=== PATIENT | female | born 1950 | race Caucasian/White ===

== ENCOUNTER 2019-12-17 13:52 | Inpatient (IN) ==
[2019-12-17] MEDS ORDERED: *HR* LORazepam 1 MG TABLET PO PRN (15:58)
[2019-12-17] MEDS ORDERED: 0.9 % Sodium Chloride 250 ML IVC SCH (16:15)
[2019-12-17] MEDS ORDERED: Ipratropium Neb 0.5 MG NEBULIZER IH PRN (17:00)
[2019-12-17] MEDS ORDERED: 0.9 % Sodium Chloride 1,000 ML IVC SCH ×2 (18:00→19:18)
[2019-12-17] MEDS: Mirabegron [Myrbetriq] 50 MG PO SCH (18:01)
[2019-12-17] MEDS: Primidone 50 MG TABLET PO SCH (18:01)
[2019-12-17] MEDS: Budesonide/Formoterol 160/4.5 1 PUFF INH IH SCH (23:00)
[2019-12-17] MEDS: Triamcinolone Acet 0.1% CRM 15 GM TUBE TP SCH (23:09)
[2019-12-17] MEDS: *HR* OxyCODONE Immed Rel 5 MG TABLET PO PRN (23:10)
[2019-12-17] MEDS: Gabapentin 300 MG CAPSULE PO SCH (23:10)
[2019-12-17 23:54] LABS: Hematocrit 23.5 % (35.3-44.9); Hemoglobin 7.5 g/dL (11.5-15.4)
[2019-12-18 06:09] LABS: Basophils % 0.4 %; Eosinophils # 0.6 K/mcL (0.0-0.6); Eosinophils % 6.3 %; Hematocrit 22.9 % (35.3-44.9); Hemoglobin 7.3 g/dL (11.5-15.4); Immature Granulocytes % 0.5 % (0-4); Lymphocytes # 2.5 K/mcL (0.6-4.6); Lymphocytes % 24.8 %; Mean Corpuscular HGB Conc 31.9 g/dL (31.6-35.5); Mean Corpuscular Hemoglobin 29.9 pg (28.0-33.3); Mean Corpuscular Volume 93.9 fL (83.0-100.0); Mean Platelet Volume 11.2 fL (9.4-12.4); Monocytes # 0.6 K/mcL (0.0-1.3); Monocytes % 6.2 %; Neutrophils # 6.3 K/mcL (1.6-8.9); Platelet Count 190 K/mcL (140-400); Red Blood Count 2.44 M/mcL (3.82-4.97); Red Cell Distribution Width 14.6 % (11.5-14.5); Segmented Neutrophils % 61.8 %; White Blood Count 10.2 K/mcL (4.3-11.1)
[2019-12-18 06:24] LABS: Calcium 8.2 mg/dL (8.6-10.3); Potassium 3.6 mEq/L (3.5-5.1)
[2019-12-18 06:36] LABS: Thyroid Stimulating Hormone 1.19 mcIU/mL (0.340-5.600)
[2019-12-18] MEDS: Budesonide/Formoterol 160/4.5 1 PUFF INH IH SCH ×2 (08:15→22:48)
[2019-12-18] MEDS: Tiotropium 18 MCG inhalation IH SCH (08:15)
[2019-12-18] MEDS: Triamcinolone Acet 0.1% CRM 15 GM TUBE TP SCH ×2 (08:30→22:41)
[2019-12-18] MEDS: *HR* OxyCODONE Immed Rel 5 MG TABLET PO PRN ×2 (08:35→19:07)
[2019-12-18] MEDS: BuPROPion XL (24 HR) 150 MG TABLET PO SCH (08:36)
[2019-12-18] MEDS: Gabapentin 300 MG CAPSULE PO SCH ×3 (08:36→22:32)
[2019-12-18] MEDS: Aspirin 81 MG TAB.CHEW PO SCH (08:36)
[2019-12-18] MEDS: Famotidine 20 MG TABLET PO SCH (08:37)
[2019-12-18] MEDS ORDERED: 0.9 % Sodium Chloride 250 ML IVC SCH (10:45)
[2019-12-18 13:50] LABS: Prealbumin 8.8 mg/dL (17.0-34.0)
[2019-12-18 14:14] LABS: Folate 14.1 ng/mL (3.0-16.0)
[2019-12-18] MEDS: Mirabegron [Myrbetriq] 50 MG PO SCH (17:00)
[2019-12-18] MEDS: Iron Sucrose Complex 200 MG in 0.9 % Sodium Chloride 100 ML IVPB SCH (18:21)
[2019-12-18 19:37] LABS: Basophils % 0.4 %; Eosinophils # 0.7 K/mcL (0.0-0.6); Eosinophils % 6.6 %; Hematocrit 27.4 % (35.3-44.9); Hemoglobin 8.8 g/dL (11.5-15.4); Immature Granulocytes % 0.6 % (0-4); Lymphocytes % 26.9 %; Mean Corpuscular HGB Conc 32.1 g/dL (31.6-35.5); Mean Corpuscular Hemoglobin 29.8 pg (28.0-33.3); Mean Corpuscular Volume 92.9 fL (83.0-100.0); Mean Platelet Volume 10.4 fL (9.4-12.4); Monocytes # 0.9 K/mcL (0.0-1.3); Monocytes % 8.1 %; Neutrophils # 6.3 K/mcL (1.6-8.9); Platelet Count 251 K/mcL (140-400); Red Blood Count 2.95 M/mcL (3.82-4.97); Red Cell Distribution Width 14.6 % (11.5-14.5); Segmented Neutrophils % 57.4 %
[2019-12-18 19:47] LABS: Estimated Average Glucose 126 mg/dl
[2019-12-19] MEDS: *HR* OxyCODONE Immed Rel 5 MG TABLET PO PRN ×3 (01:59→18:30)
[2019-12-19 05:42] LABS: Basophils # 0.1 K/mcL (0.0-0.2); Basophils % 0.5 %; Eosinophils # 0.7 K/mcL (0.0-0.6); Eosinophils % 6.8 %; Hematocrit 28.2 % (35.3-44.9); Hemoglobin 9.1 g/dL (11.5-15.4); Immature Granulocytes % 0.5 % (0-4); Lymphocytes % 30.3 %; Mean Corpuscular HGB Conc 32.3 g/dL (31.6-35.5); Mean Corpuscular Hemoglobin 29.8 pg (28.0-33.3); Mean Corpuscular Volume 92.5 fL (83.0-100.0); Mean Platelet Volume 10.6 fL (9.4-12.4); Monocytes # 0.9 K/mcL (0.0-1.3); Monocytes % 8.8 %; Neutrophils # 5.3 K/mcL (1.6-8.9); Platelet Count 256 K/mcL (140-400); Red Blood Count 3.05 M/mcL (3.82-4.97); Red Cell Distribution Width 14.7 % (11.5-14.5); Segmented Neutrophils % 53.1 %
[2019-12-19 06:01] LABS: BUN/Creatinine Ratio 12 (6-26); Blood Urea Nitrogen 12 mg/dL (8-23); Calcium 8.4 mg/dL (8.6-10.3); Carbon Dioxide 25 mEq/L (23-29); Chloride 111 mEq/L (98-107); Glucose 133 mg/dL (70-105); Osmolality,Calculated 296 (280-300); Potassium 3.7 mEq/L (3.5-5.1); Sodium 142 mEq/L (136-145); eGFR For African Americans > 60 (> 60); eGFR For Non-African Americans 52 (> 60)
[2019-12-19] MEDS: Tiotropium 18 MCG inhalation IH SCH (08:00)
[2019-12-19] MEDS: Budesonide/Formoterol 160/4.5 1 PUFF INH IH SCH ×2 (08:02→20:39)
[2019-12-19] MEDS: Famotidine 20 MG TABLET PO SCH (08:57)
[2019-12-19] MEDS: Gabapentin 300 MG CAPSULE PO SCH ×3 (08:57→20:38)
[2019-12-19] MEDS: Aspirin 81 MG TAB.CHEW PO SCH (08:57)
[2019-12-19] MEDS: Triamcinolone Acet 0.1% CRM 15 GM TUBE TP SCH (08:57)
[2019-12-19] MEDS: Iron Sucrose Complex 200 MG in 0.9 % Sodium Chloride 100 ML IVPB SCH (09:04)
[2019-12-19] MEDS: BuPROPion XL (24 HR) 150 MG TABLET PO SCH (10:45)
[2019-12-19 14:21] LABS: Bilirubin,Urine Negative (Negative); Blood,Urine Moderate (Negative); Clarity,Urine Cloudy (Clear); Color,Urine Yellow (Yellow); Glucose,Urine (UA) Normal (Normal); Ketones,Urine Negative (Negative); Leukocyte Esterase,Urine Large (Negative); Nitrite,Urine Negative (Negative); Protein,Urine 100 mg/dL (Neg-Trace); Urobilinogen,Urine Normal (Normal)
[2019-12-19 15:01] LABS: Bacteria,Urine Many per hpf (None-Few); RBC,Urine 15-30 per hpf (0-3); WBC,Urine TNTC per hpf (0-3)
[2019-12-19] MEDS: Mirabegron [Myrbetriq] 50 MG PO SCH (18:27)
[2019-12-20] MEDS: Gabapentin 300 MG CAPSULE PO SCH ×3 (08:10→22:16)
[2019-12-20] MEDS: Famotidine 20 MG TABLET PO SCH (08:10)
[2019-12-20] MEDS: *HR* OxyCODONE Immed Rel 5 MG TABLET PO PRN ×3 (08:10→22:15)
[2019-12-20] MEDS: Aspirin 81 MG TAB.CHEW PO SCH (08:11)
[2019-12-20] MEDS: Iron Sucrose Complex 200 MG in 0.9 % Sodium Chloride 100 ML IVPB SCH (08:11)
[2019-12-20] MEDS: Triamcinolone Acet 0.1% CRM 15 GM TUBE TP SCH ×3 (08:11→22:21)
[2019-12-20] MEDS: Budesonide/Formoterol 160/4.5 1 PUFF INH IH SCH ×2 (08:20→22:19)
[2019-12-20] MEDS: Tiotropium 18 MCG inhalation IH SCH (08:20)
[2019-12-20] MEDS: BuPROPion XL (24 HR) 150 MG TABLET PO SCH (09:59)
[2019-12-20] MEDS: Primidone 50 MG TABLET PO SCH (15:42)
[2019-12-20] MEDS: Mirabegron [Myrbetriq] 50 MG PO SCH (16:55)
[2019-12-21 05:25] LABS: Basophils # 0.1 K/mcL (0.0-0.2); Basophils % 0.6 %; Eosinophils # 0.8 K/mcL (0.0-0.6); Eosinophils % 7.4 %; Hematocrit 29.9 % (35.3-44.9); Hemoglobin 9.5 g/dL (11.5-15.4); Immature Granulocytes % 0.9 % (0-4); Lymphocytes # 2.8 K/mcL (0.6-4.6); Lymphocytes % 25.5 %; Mean Corpuscular HGB Conc 31.8 g/dL (31.6-35.5); Mean Corpuscular Hemoglobin 29.3 pg (28.0-33.3); Mean Corpuscular Volume 92.3 fL (83.0-100.0); Mean Platelet Volume 10.2 fL (9.4-12.4); Monocytes # 0.8 K/mcL (0.0-1.3); Monocytes % 7.4 %; Neutrophils # 6.4 K/mcL (1.6-8.9); Platelet Count 297 K/mcL (140-400); Red Blood Count 3.24 M/mcL (3.82-4.97); Red Cell Distribution Width 14.6 % (11.5-14.5); Segmented Neutrophils % 58.2 %
[2019-12-21 05:38] LABS: BUN/Creatinine Ratio 15 (6-26); Blood Urea Nitrogen 16 mg/dL (8-23); Calcium 8.8 mg/dL (8.6-10.3); Carbon Dioxide 25 mEq/L (23-29); Chloride 108 mEq/L (98-107); Glucose 106 mg/dL (70-105); Osmolality,Calculated 292 (280-300); Potassium 3.7 mEq/L (3.5-5.1); Sodium 140 mEq/L (136-145); eGFR For African Americans > 60 (> 60); eGFR For Non-African Americans 52 (> 60)
[2019-12-21] MEDS: Tiotropium 18 MCG inhalation IH SCH (07:55)
[2019-12-21] MEDS: Budesonide/Formoterol 160/4.5 1 PUFF INH IH SCH (07:57)
[2019-12-21] MEDS: Famotidine 20 MG TABLET PO SCH (10:17)
[2019-12-21] MEDS: Aspirin 81 MG TAB.CHEW PO SCH (10:17)
[2019-12-21] MEDS: Gabapentin 300 MG CAPSULE PO SCH ×3 (10:17→20:06)
[2019-12-21] MEDS: BuPROPion XL (24 HR) 150 MG TABLET PO SCH (10:18)
[2019-12-21] MEDS: Triamcinolone Acet 0.1% CRM 15 GM TUBE TP SCH (10:21)
[2019-12-21] MEDS: Iron Sucrose Complex 200 MG in 0.9 % Sodium Chloride 100 ML IVPB SCH (11:43)
[2019-12-21] MEDS: *HR* OxyCODONE Immed Rel 5 MG TABLET PO PRN ×2 (12:24→18:56)
[2019-12-21] MEDS: Mirabegron [Myrbetriq] 50 MG PO SCH (18:00)
[2019-12-22] MEDS: Budesonide/Formoterol 160/4.5 1 PUFF INH IH SCH ×3 (07:03→21:05)
[2019-12-22] MEDS: Triamcinolone Acet 0.1% CRM 15 GM TUBE TP SCH ×3 (07:52→20:37)
[2019-12-22] MEDS: Tiotropium 18 MCG inhalation IH SCH (08:24)
[2019-12-22] MEDS: Famotidine 20 MG TABLET PO SCH (09:12)
[2019-12-22] MEDS: Iron Sucrose Complex 200 MG in 0.9 % Sodium Chloride 100 ML IVPB SCH (09:12)
[2019-12-22] MEDS: Aspirin 81 MG TAB.CHEW PO SCH (09:13)
[2019-12-22] MEDS: Gabapentin 300 MG CAPSULE PO SCH ×3 (09:13→20:36)
[2019-12-22] MEDS: BuPROPion XL (24 HR) 150 MG TABLET PO SCH (09:13)
[2019-12-22] MEDS: *HR* OxyCODONE Immed Rel 5 MG TABLET PO PRN ×2 (09:14→17:10)
[2019-12-22] MEDS: Sennosides 8.6 MG TABLET PO SCH ×2 (09:22→20:36)
[2019-12-22] MEDS: Primidone 50 MG TABLET PO SCH (14:28)
[2019-12-22] MEDS: Mirabegron [Myrbetriq] 50 MG PO SCH (17:03)
[2019-12-23] MEDS: *HR* OxyCODONE Immed Rel 5 MG TABLET PO PRN ×3 (03:03→17:59)
[2019-12-23] MEDS: Aspirin 81 MG TAB.CHEW PO SCH (08:16)
[2019-12-23] MEDS: Sennosides 8.6 MG TABLET PO SCH ×2 (08:16→20:34)
[2019-12-23] MEDS: Gabapentin 300 MG CAPSULE PO SCH ×3 (08:16→20:34)
[2019-12-23] MEDS: BuPROPion XL (24 HR) 150 MG TABLET PO SCH (08:16)
[2019-12-23] MEDS: Famotidine 20 MG TABLET PO SCH (08:16)
[2019-12-23] MEDS: Triamcinolone Acet 0.1% CRM 15 GM TUBE TP SCH ×2 (08:17→20:34)
[2019-12-23] MEDS: Budesonide/Formoterol 160/4.5 1 PUFF INH IH SCH ×2 (11:17→22:35)
[2019-12-23] MEDS: Tiotropium 18 MCG inhalation IH SCH (11:17)
[2019-12-23] MEDS: Iron Sucrose Complex 200 MG in 0.9 % Sodium Chloride 100 ML IVPB SCH (13:23)
[2019-12-23] MEDS: Mirabegron [Myrbetriq] 50 MG PO SCH (17:59)
[2019-12-24 07:26] VITALS: BP 130/69
[2019-12-24] MEDS: *HR* OxyCODONE Immed Rel 5 MG TABLET PO PRN (09:31)
[2019-12-24] MEDS: Gabapentin 300 MG CAPSULE PO SCH (09:31)
[2019-12-24] MEDS: Sennosides 8.6 MG TABLET PO SCH (09:31)
[2019-12-24] MEDS: Famotidine 20 MG TABLET PO SCH (09:32)
[2019-12-24] MEDS: BuPROPion XL (24 HR) 150 MG TABLET PO SCH (09:32)
[2019-12-24] MEDS: Aspirin 81 MG TAB.CHEW PO SCH (09:32)
[2019-12-24] MEDS: Triamcinolone Acet 0.1% CRM 15 GM TUBE TP SCH (09:32)
[2019-12-24 13:28] LABS: % Iron Saturation 16 % (15-50); Iron 39 mcg/dL (50-170); Transferrin 170 mg/dL (203-362)
== END 2019-12-24 11:55 | disposition home health service (06) | DRG 560 ==
LOC: INPGRE 14:16
PROVIDERS: ADMIT Family Medicine; ATTEND Family Medicine